=== PATIENT | male | born 1965 | race Two or more races ===

== ENCOUNTER → 2024-11-04 | Outpatient (CLI) | payer MEDICAID, SELFPAY ==
--- NOTE | 2024-11-04 16:39 | XR_ITS ---
Examination: PA lateral chest 2 views TECHNIQUE: Upright PA lateral chest 2 views Exam date and time: October 27, 2024 1735 hours INDICATIONS: Shortness of breath chest pain one week. FINDINGS: Chronic heart failure pattern Mild enlargement cardiac contour Prominent vascular congestion with perihilar edema Consider superimposed pneumonia at the lung bases IMPRESSION: Mild heart failure Consider superimposed pneumonia at the lung bases
== END | disposition home or self-care (01) ==
LOC: CDIM 16:15
PROVIDERS: Referring Provider Physician Assistant; Visit Provider Physician Assistant
DX: I50.9 Heart failure, unspecified (principal); R91.8 Other nonspecific abnormal finding of lung field
CPT/HCPCS: 71046